=== PATIENT | male | born 1960 | race Caucasian/White ===

== ENCOUNTER → 2018-04-08 | Outpatient (CLI) | payer OTHER | END | disposition EMS.NT | LOC: EMS 19:58 | PROVIDERS: ATTEND Surgery | DX: T21.22XA Burn of second degree of abdominal wall, initial encounter (principal); T24.212A Burn of second degree of left thigh, initial encounter; T24.211A Burn of second degree of right thigh, initial encounter; T24.232A Burn of second degree of left lower leg, initial encounter; T24.231A Burn of second degree of right lower leg, initial encounter; S09.90XA Unspecified injury of head, initial encounter; V93.59XA Explosion on board unspecified watercraft, initial encounter ==